=== PATIENT | male | born 1950 | race African-American/Black ===

== ENCOUNTER 2021-01-15 13:16 | Observation (INO) | payer OTHER ==
[~2021-01-15] VITALS: Ht 182.9 cm; Wt 74.7 kg
--- NOTE | 2021-01-15 13:40 | NUR ---
pt to room # 16 for bedside triage
[2021-01-15] MEDS ORDERED: TRILEPTAL300 MG PO (13:55)
[2021-01-15] MEDS ORDERED: LASIX 40 MG TAB40 MG PO (13:56)
[2021-01-15] MEDS ORDERED: LISINOPRIL10 MG PO (13:56)
[2021-01-15] MEDS ORDERED: PROSCAR5 MG PO (13:57)
[2021-01-15] MEDS ORDERED: TERAZOSIN2 MG PO (13:57)
[2021-01-15] MEDS ORDERED: BACTRIM DS1 TAB PO (13:57)
[2021-01-15] MEDS ORDERED: DOXYCYCLINE100 MG PO (13:57)
[2021-01-15 14:18] LABS: BASO% 0 % (0-3); EOS% 1 % (0-8); HEMATOCRIT 39.2 % (39.0-50.0); HEMOGLOBIN 13.2 g/dl (14.0-18.0); IMMATURE GRANULOCYTES 0.3 % (0.0-5.0); LYMPH% 26 % (15-41); MEAN CELL VOLUME 93.8 fL CALC (80.0-100.0); MEAN CORPUSCULAR HGB 31.6 pG CALC (26.0-32.0); MEAN CORPUSCULAR HGB CONC 33.7 g/dL CAL (32.0-36.0); MONO% 10 % (2-13); NEUT# 4.67 thou/uL (1.82-7.42); NEUT% 63 % (42-76); PLATELET COUNT 231 thou/uL (130-400); RED BLOOD COUNT 4.18 mill/uL (4.70-6.10); RED CELL DISTRI WIDTH 12.8 % (11.5-15.5)
[2021-01-15 14:29] LABS: ALBUMIN 4.2 g/dL (3.2-5.0); BILIRUBIN, TOTAL 0.3 mg/dL (0.0-1.4); CREATININE 2.5 mg/dL (0.7-1.3); POTASSIUM 4.9 mmol/l (3.5-5.1); TOTAL PROTEIN 7.4 g/dL (6.3-8.2)
--- NOTE | 2021-01-15 14:30 | NUR ---
PATIENT RESTING, NO DISTRESS. CONTINUING TO MONITOR.
--- NOTE | 2021-01-15 15:15 | NUR ---
ABX/FLUID INFUSING WIHTOUT DIFFICULTY, PLAN REVIEWED, PATIENT VERBALIZES UNDERSTANDING. CALL MARK IN REACH.
--- NOTE | 2021-01-15 16:11 | NUR ---
SBAR PRINTED TO FLOOR
--- NOTE | 2021-01-15 16:44 | NUR ---
ROOM 273
[2021-01-15 16:50] VITALS: BP 204/85
--- NOTE | 2021-01-15 16:50 | NUR ---
Call from nurse at [facility] to advise she forgot to fax over the Insulin sheet and that the pt takes NPH 43 units in the AM and last dose was @ 0600 this am. Pharmacy notified and KALIN Leyva notified since med rec was already addressed for admission.
--- NOTE | 2021-01-15 16:50 | NUR ---
REPORT CALLED TO IRAIS CÁRDENAS. ALL QUESTIONS ANSWERED
--- NOTE | 2021-01-15 16:50 | NUR ---
BP WAS SLIGHTLY ELEVATED UPON ARRIVAL FROM ER, THEN PT AMBULATED TO THE BATHROOM . WILL RECHECK ON BP
[2021-01-15] MEDS ORDERED: HUMULIN N100 UNIT/M SC (16:53)
--- NOTE | 2021-01-15 16:55 | NUR ---
PATIENT TAKEN UPSTAIRS AT THIS TIME, AAOX4, NO DISTRESS
--- NOTE | 2021-01-15 16:57 | NUR ---
PT ARRIVED FROM ER VIA STRETCHER WITH STAFF. IV SITE A DN 2 GUARDS PRESENT
--- NOTE | 2021-01-15 17:40 | NUR ---
ASSESSMENT IS COMPLTED: IV SITE IS FREE FROM REDNESS OR EDEMA. HR IS REG,PULSES ARE STRONG X4., ABD IS SOFT WITH ACTIVE BS. BREATH SOUNDS ARE CLEAR,BILATERALLY., LEFT FOOT HAS 2 PLUS EDEMA NOTED. 2 GUARDS PRESENT IN THE ROOM. PT HAS SHACKLES IN PLACE. PT HAS A SHUNT IN HIS LEFT ARM NOT IN USE. CONTINUE TO OBSERVE AND MONITOR.
--- NOTE | 2021-01-15 17:45 | NUR ---
MORENO WHITAKER IN TO VISIT WITH PT. EXPLAINED THAT DR SHINE WILL BE IN TO SEE PT IN THE AM. LEFT FOOT IS SWOLLEN/. 2 GUARDS PRESENT IN THE ROOM.
--- NOTE | 2021-01-15 18:00 | NUR ---
BP WAS RECHECKED AFTER PT ABLE TO RELAX IN BED AFTER EATING SUPPER./
[2021-01-15 18:18] VITALS: BP 142/67
[2021-01-15 19:00] VITALS: BP 165/81
--- NOTE | 2021-01-15 19:09 | NUR ---
OFFICER FROM [facility] CAME AND BROUGHT HIS PERSONAL MEDICATION. FOR PHARMACY TO CHECK.
--- NOTE | 2021-01-15 20:00 | NUR ---
PATIENT SITTING UP ON THE SIDE OF THE BED AT THIS TIME-AWAKE ALERT AND ORIENTEDX3. TESSA'SX2 IN ROOM. PATIENT WITH SHACKELS TO BLE. PATIENT STATES THAT CONT TO HAVE THROBBING PAIN TO LEFT FOOT EVEN AFTER TAKING TYLENOL EARLIER. PATIENT THEN MEDICATED WITH ULTRAM 50MG PO FOR 8/10 PAIN SCALE. PATIENT WITH IVF NS PATENT AND INFUSING VIA RAC SITE AT 75CC/HR. SITE IS HEALTHY AT THIS TIME. ENCOURAGED PATIENT TO ELEVATE LEFT FOOT FOR COMFORT. SAFETY PRECAUTIONS REINFORCED. CALL LIGHT IN REACH. WILL CONT TO MONITOR.
--- NOTE | 2021-01-16 00:19 | NUR ---
RESTING IN BED AT THIS TIME WITH TESSA'S IN ROOM. IVF NS PATENT AND INFUSING VIA RAC SITE. CALL LIGHT IN REACH. WILL CONT TO MONITOR.
--- NOTE | 2021-01-16 02:13 | NUR ---
PATIENT AWAKE RESTING ON SIDE OF THE BED WITH SHACKELS IN PLACE AND TESSA'S AT BEDSIDE. PATIENT WITH NO COMPLAINTS AT THIS TIME. ENCOURAGED PATIENT TO GET INTO BED AND ELEVATE FEET TO HELP DECREASE SWELLING TO THE LLE. IVF PATENT AND INFUSING VIA RAC AT 75CC/HR. CALL LIGHT IN REACH. WILL CONT TO MONITOR.
--- NOTE | 2021-01-16 03:59 | NUR ---
PATIENT SITTING ON THE SIDE OF THE BED WITH HEAD TUCKED DOWN AND EYES CLOSED. APPEARS SLEEPING WITH LEOSX2 AT BEDSIDE. RESPS ARE EVEN AND UNLABORED. IVF PATENT AND INFUSING VIA RAC SITE AT 75CC/HR. CALL LIGHT IN REACH. WILL CONT TO MONITOR.
[2021-01-16 04:00] VITALS: BP 165/93
[2021-01-16 05:40] LABS: HEMATOCRIT 39.7 % (39.0-50.0); HEMOGLOBIN 13.4 g/dl (14.0-18.0); MEAN CELL VOLUME 93.9 fL CALC (80.0-100.0); MEAN CORPUSCULAR HGB 31.7 pG CALC (26.0-32.0); MEAN CORPUSCULAR HGB CONC 33.8 g/dL CAL (32.0-36.0); RED BLOOD COUNT 4.23 mill/uL (4.70-6.10)
[2021-01-16 06:03] LABS: MAGNESIUM 1.9 mg/dL (1.6-2.3); POTASSIUM 4.8 mmol/l (3.5-5.1)
[2021-01-16 07:45] VITALS: BP 192/75
--- NOTE | 2021-01-16 07:45 | NUR ---
ASSESSMENT IS COMPLETED: IV SITE IS FREE FROM REDNES OR EDEMA. HR IS REG,PULSES ARE STRONG X4, ABD IS SOFT WITH ACTIVE BS. BREATH SOUNDS ARE CLEAR,BILATERALLY, LEFT FOOT HAS SOME SWELLING NOTED THE AREA BY SMALL TOE IS CDI./ NO DRAINAGE NOTED.
--- NOTE | 2021-01-16 08:04 | NUR ---
DR BOSWELL IN TO VISIT WITH PT. NO NEED FOR SURGERY, KEEP AREA CLEAN AND DRY. NO DRESSING NEEDED,
--- NOTE | 2021-01-16 08:15 | NUR ---
S: ASHKAN GUZMÁN is a 70 M who presents with wound check, pain to left foot. He has a history of cellulitis of left foot. All medications in patient's chart were reviewed. O: VS: BP 165/93 mmHg, P 92 bpm, RR 20 bpm ,T 97.3 F W 72.2 kg, HT 182.88 cm, Scr=2.5 mL/min, CrCl= 30 ml/min A: Blood culture is pending P: Patient is on ceftriaxone 1 g Q24H. Vancomycin ordered for pharmacy to dose. Start Vancomycin 1000 mg IV Q24H. Vancomycin trough is drawn before the 4th dose on 01/18/21 @1430. Vancomycin goal trough is between 10-15 mcg/ml. Pharmacy will follow and or advise on antibiotics use as needed.
[2021-01-16] MEDS ORDERED: DOXYCYCLINE100 MG PO (10:46)
--- NOTE | 2021-01-16 12:20 | NUR ---
PT HAS BEEN RELAXING IN BED , 2 GUARDS AT BEDSIDE. IV SITE IS FREE FROM REDNESS OR EDEMA.
[2021-01-16 14:30] VITALS: BP 162/66
--- NOTE | 2021-01-16 15:26 | NUR ---
NURSE HOWARD BRAXTON. FROM THE [facility] AT [facility] INQUIRED ABOUT PLAN FOR THE PT. INFORMED OF THE DC INSTRUCTIONS AND FROM BOTH WOUND CARE MD AND DR BOSWELL WANTRS THE WOUND TO BE CLEANED AND NOT TOUCHED.
--- NOTE | 2021-01-16 18:00 | NUR ---
IV SITE DISCONITNUED CATHETER INTACT. NO REDNESS OR EDEMA. DISCHARGE PAPERS WERE GIVEN TO PT AND GUARDS. SHACKLED WITH FEET AND ARMS. INFORMED PT OF THE NURSE AT THE FACILITY HAS BEEN NOTIFIED. AND TO REMIND TO KEEP FOOT CLEAN AND DRY WITH A SOCK. VERBALIZED UNDERSTANDING.
--- NOTE | 2021-01-16 18:20 | NUR ---
Discharge instructions given. Patient verbalizes understanding of same. Discharged in stable condition via Medical Transport to *Other with *Other. All belongings sent with pt.[facility] WITH GUARDS/
== END 2021-01-16 18:27 | DRG 603 ==
LOC: ED 13:16 → ED-I 15:53 → ED 16:10 → MS2 16:11
PROVIDERS: Family Medicine; Nurse Practitioner; ADMIT Internal Medicine; ATTEND Internal Medicine
DX: L03.116 Cellulitis of left lower limb (principal); L97.429 Non-pressure chronic ulcer of left heel and midfoot with unspecified severity; E11.621 Type 2 diabetes mellitus with foot ulcer; I12.9 Hypertensive chronic kidney disease with stage 1 through stage 4 chronic kidney disease, or unspecified chronic kidney disease; E11.22 Type 2 diabetes mellitus with diabetic chronic kidney disease; N18.9 Chronic kidney disease, unspecified; K76.9 Liver disease, unspecified; N40.0 Benign prostatic hyperplasia without lower urinary tract symptoms; Z79.4 Long term (current) use of insulin; Z20.822 Contact with and (suspected) exposure to COVID-19
CPT/HCPCS: G0378

== ENCOUNTER 2021-02-27 16:06 | Inpatient (IN) | payer OTHER ==
[~2021-02-27] VITALS: Ht 180.3 cm; Wt 74.0 kg
[~2021-02-27 16:06] MED LIST: BACTRIM DS1 TAB PO; DOXYCYCLINE100 MG PO; HUMULIN N100 UNIT/M SC; LASIX 40 MG TAB40 MG PO; LISINOPRIL10 MG PO; PROSCAR5 MG PO; TERAZOSIN2 MG PO; TRILEPTAL300 MG PO
[2021-02-27 18:43] LABS: HEMATOCRIT 36.1 % (39.0-50.0); HEMOGLOBIN 11.7 g/dl (14.0-18.0); IMMATURE GRANULOCYTES 0.4 % (0.0-5.0); MEAN CELL VOLUME 98.9 fL CALC (80.0-100.0); MEAN CORPUSCULAR HGB 32.1 pG CALC (26.0-32.0); MEAN CORPUSCULAR HGB CONC 32.4 g/dL CAL (32.0-36.0); NEUT# 5.56 thou/uL (1.82-7.42); RED BLOOD COUNT 3.65 mill/uL (4.70-6.10); RED CELL DISTRI WIDTH 14.9 % (11.5-15.5)
[2021-02-27 19:48] LABS: ALBUMIN 3.9 g/dL (3.2-5.0); BILIRUBIN, TOTAL 0.3 mg/dL (0.0-1.4); CREATININE 1.6 mg/dL (0.7-1.3); POTASSIUM 4.3 mmol/l (3.5-5.1); TOTAL PROTEIN 7.2 g/dL (6.3-8.2)
[2021-02-27 20:15] VITALS: BP 156/76
[2021-02-28 00:11] LABS: URINE BILIRUBIN - DIPSTICK NEGATIVE (NEGATIVE); URINE BLOOD DIPSTICK NEGATIVE (NEGATIVE); URINE CLARITY CLEAR; URINE COLOR YELLOW; URINE GLUCOSE - DIPSTICK NEGATIVE (NEGATIVE); URINE KETONE NEGATIVE (NEGATIVE); URINE LEUK ESTERASE NEGATIVE (Negative); URINE NITRITE - DIPSTICK NEGATIVE (Negative); URINE PROTEIN - DIPSTICK TRACE mg/dL (NEG-TRACE); URINE UROBILINOGEN - DIPSTICK 0.2 E.U./dL (0.2)
[2021-02-28 04:00] VITALS: BP 130/80
[2021-02-28 05:23] LABS: HEMATOCRIT 35.7 % (39.0-50.0); HEMOGLOBIN 11.3 g/dl (14.0-18.0); MEAN CELL VOLUME 100.6 fL CALC (80.0-100.0); MEAN CORPUSCULAR HGB 31.8 pG CALC (26.0-32.0); MEAN CORPUSCULAR HGB CONC 31.7 g/dL CAL (32.0-36.0); RED BLOOD COUNT 3.55 mill/uL (4.70-6.10); RED CELL DISTRI WIDTH 12.7 % (11.5-15.5)
[2021-02-28 05:29] LABS: CREATININE 1.6 mg/dL (0.7-1.3); POTASSIUM 4.4 mmol/l (3.5-5.1)
[2021-02-28 07:32] VITALS: BP 136/76
[2021-02-28 14:50] VITALS: BP 150/86
[2021-02-28 19:02] VITALS: BP 136/70
[2021-02-28 23:25] VITALS: BP 137/81
[2021-03-01 03:50] VITALS: BP 151/77
[2021-03-01 06:16] LABS: HEMATOCRIT 33.2 % (39.0-50.0); HEMOGLOBIN 10.5 g/dl (14.0-18.0); MEAN CELL VOLUME 101.2 fL CALC (80.0-100.0); MEAN CORPUSCULAR HGB CONC 31.6 g/dL CAL (32.0-36.0); RED BLOOD COUNT 3.28 mill/uL (4.70-6.10); RED CELL DISTRI WIDTH 12.9 % (11.5-15.5)
[2021-03-01 06:33] LABS: CREATININE 1.5 mg/dL (0.7-1.3); POTASSIUM 4.6 mmol/l (3.5-5.1)
[2021-03-01 07:15] VITALS: BP 148/84
[2021-03-01 15:00] VITALS: BP 149/79
[2021-03-01 18:59] VITALS: BP 152/69
[2021-03-02 03:55] VITALS: BP 144/67
[2021-03-02 06:06] LABS: HEMATOCRIT 32.4 % (39.0-50.0); HEMOGLOBIN 10.3 g/dl (14.0-18.0); MEAN CELL VOLUME 100.9 fL CALC (80.0-100.0); MEAN CORPUSCULAR HGB 32.1 pG CALC (26.0-32.0); MEAN CORPUSCULAR HGB CONC 31.8 g/dL CAL (32.0-36.0); RED BLOOD COUNT 3.21 mill/uL (4.70-6.10); RED CELL DISTRI WIDTH 12.8 % (11.5-15.5)
[2021-03-02 06:08] LABS: ALBUMIN 3.5 g/dL (3.2-5.0); BILIRUBIN, TOTAL 0.2 mg/dL (0.0-1.4); CREATININE 1.6 mg/dL (0.7-1.3); POTASSIUM 4.1 mmol/l (3.5-5.1); TOTAL PROTEIN 6.5 g/dL (6.3-8.2)
[2021-03-02 07:38] VITALS: BP 162/74
[2021-03-02 12:04] VITALS: BP 132/79
[2021-03-02 15:26] VITALS: BP 132/71
[2021-03-02 19:25] VITALS: BP 145/67
[2021-03-03 04:29] VITALS: BP 155/75
[2021-03-03 05:34] LABS: HEMATOCRIT 32.5 % (39.0-50.0); HEMOGLOBIN 10.5 g/dl (14.0-18.0); MEAN CORPUSCULAR HGB 32.3 pG CALC (26.0-32.0); MEAN CORPUSCULAR HGB CONC 32.3 g/dL CAL (32.0-36.0); RED BLOOD COUNT 3.25 mill/uL (4.70-6.10); RED CELL DISTRI WIDTH 12.9 % (11.5-15.5)
[2021-03-03 05:58] LABS: ALBUMIN 3.5 g/dL (3.2-5.0); BILIRUBIN, TOTAL 0.2 mg/dL (0.0-1.4); CREATININE 1.6 mg/dL (0.7-1.3); POTASSIUM 4.1 mmol/l (3.5-5.1); TOTAL PROTEIN 6.6 g/dL (6.3-8.2)
[2021-03-03 07:22] VITALS: BP 141/73
[2021-03-03 15:39] VITALS: BP 132/71
[2021-03-03 19:09] VITALS: BP 142/76
[2021-03-04 04:00] VITALS: BP 138/76
[2021-03-04 07:50] VITALS: BP 138/74
[2021-03-04 17:49] VITALS: BP 154/67
[2021-03-04 19:00] VITALS: BP 148/74
[2021-03-05 04:56] VITALS: BP 140/72
[2021-03-05 05:59] LABS: HEMOGLOBIN 10.6 g/dl (14.0-18.0); MEAN CELL VOLUME 100.6 fL CALC (80.0-100.0); MEAN CORPUSCULAR HGB 32.3 pG CALC (26.0-32.0); MEAN CORPUSCULAR HGB CONC 32.1 g/dL CAL (32.0-36.0); RED BLOOD COUNT 3.28 mill/uL (4.70-6.10); RED CELL DISTRI WIDTH 12.7 % (11.5-15.5)
[2021-03-05 06:00] LABS: CREATININE 1.5 mg/dL (0.7-1.3); MAGNESIUM 1.8 mg/dL (1.6-2.3); POTASSIUM 3.9 mmol/l (3.5-5.1)
[2021-03-05 07:19] VITALS: BP 150/72
[2021-03-05 08:42] VITALS: BP 150/72
== END 2021-03-05 12:31 | disposition short-term general hospital (02) | DRG 300 ==
LOC: ED 16:06 → ED-I 18:58 → ED 18:59 → MS2 19:09
PROVIDERS: Family Medicine; Nurse Practitioner; Nurse Practitioner Family; ADMIT Internal Medicine; ATTEND Internal Medicine
PROC: 02HV33Z Insertion of Infusion Device into Superior Vena Cava, Percutaneous Approach (ICD-10-PCS; principal; 2021-03-04)
PROC: B518ZZA Fluoroscopy of Superior Vena Cava, Guidance (ICD-10-PCS; 2021-03-04)
DX: E11.52 Type 2 diabetes mellitus with diabetic peripheral angiopathy with gangrene (principal); M86.8X7 Other osteomyelitis, ankle and foot; L03.116 Cellulitis of left lower limb; I70.262 Atherosclerosis of native arteries of extremities with gangrene, left leg; E11.69 Type 2 diabetes mellitus with other specified complication; E11.621 Type 2 diabetes mellitus with foot ulcer; L97.529 Non-pressure chronic ulcer of other part of left foot with unspecified severity; E11.628 Type 2 diabetes mellitus with other skin complications; E11.22 Type 2 diabetes mellitus with diabetic chronic kidney disease; I12.9 Hypertensive chronic kidney disease with stage 1 through stage 4 chronic kidney disease, or unspecified chronic kidney disease; N18.9 Chronic kidney disease, unspecified; M19.90 Unspecified osteoarthritis, unspecified site; Z79.4 Long term (current) use of insulin; Z20.822 Contact with and (suspected) exposure to COVID-19
CPT/HCPCS: A9579; G0378; J1650; J3370; Q3014; Q9967